=== PATIENT | male | born 1980 | race Caucasian/White ===

== ENCOUNTER → 2017-09-06 | Outpatient (CLI) | payer OTHER ==
--- NOTE | 2017-09-06 13:12 | RADIOLOGY IMAGING REPORT ---
[place] [facility] [place]: Guillermo Iyer : 1980 MR: [id number] V: [id number] EXAM DATE: ORDERING PHYSICIAN: GHAZAL TINAJERO TECHNOLOGIST: [place] [facility] [place] Guillermo Iyer : 1980 Visit/Account:[id number] Date of Sevice: 09/06/2017 KIDNEYS EXAMINATION: Renal ultrasound. History: UTI COMPARISON STUDIES: September 16, 2015 FINDINGS: Kidneys: Right kidney- 9.2 x 5.2 x 5.2 cm Left kidney- 9.5 x 5.6 x 4.8 cm Uniform and symmetric blood flow in each kidney by Doppler ultrasound. Hydronephrosis: none Resistive index on the right 0.60 and on the left 0.67 Bladder: Prevoid volume 40.6 mL. Bilateral ureteral jets are present. Abdominal aorta and IVC: Aorta and IVC are patent by Doppler ultrasound. IMPRESSION: Normal sonographic appearance to the kidneys Bladder not well distended with prevoid volume of 40.6 mL Report Dictated By: Inna Mahoney MD at 09/06/2017 1:07 PM Report E-Signed By: Inna Mahoney MD at 09/06/2017 1:09 PM ANIKAN:RHYS
== END ==
LOC: US 00:53
PROVIDERS: ATTEND Urology
DX: N31.0 Uninhibited neuropathic bladder, not elsewhere classified (principal); N39.0 Urinary tract infection, site not specified
CPT/HCPCS: 76705